=== PATIENT | female | born 2000 | race Caucasian/White ===

== ENCOUNTER → 2020-08-13 14:51 | Outpatient (CLI) | payer OTHER, SELFPAY ==
[2020-08-13 18:20] LABS: HCG,Quantitative 20489 mIU/ml (0-5.42)
== END ==
PROVIDERS: Visit Provider Nurse Practitioner Obstetrics & Gynecology
DX: N92.6 Irregular menstruation, unspecified (principal)
CPT/HCPCS: 36415; 84702

== ENCOUNTER → 2020-08-24 13:27 | Outpatient (CLI) | payer OTHER, SELFPAY ==
[2020-08-24 13:54] LABS: Barbiturates Screen,Urine Negative ng/ml (<200)
[2020-08-24 13:55] LABS: Benzodiazepines Screen,Urine Negative ng/ml (<200)
[2020-08-24 13:56] LABS: Amphetamine/Metha Screen,Urine Negative ng/ml (<1000); Cannabinoid Screen,Urine Positive ng/ml (<50)
[2020-08-24 13:57] LABS: Cocaine Screen,Urine Negative ng/ml (<300)
[2020-08-24 13:58] LABS: Methadone Screen,Urine Negative ng/ml (<300); Opiate Screen,Urine Negative ng/ml (<300)
[2020-08-24 13:59] LABS: Phencyclidine Screen,Urine Negative ng/ml (<25)
[2020-08-28 10:37] LABS: Neisseria gonorrhoeae, NAA Negative (Negative)
== END ==
PROVIDERS: Visit Provider Nurse Practitioner Obstetrics & Gynecology
DX: Z34.90 Encounter for supervision of normal pregnancy, unspecified, unspecified trimester (principal); R82.5 Elevated urine levels of drugs, medicaments and biological substances
CPT/HCPCS: 80305; 87491; 87591

== ENCOUNTER → 2020-08-29 09:06 | Outpatient (CLI) | payer OTHER, SELFPAY ==
--- NOTE | 2020-08-29 09:17 | US_ITS ---
PROCEDURE: US OB >= 14 WEEKS FETUS CLINICAL INDICATION: 20 weeks gestation Late to care Patient's first ultrasound No known LMP or NARINDER COMPARISON: No exams were available for comparison FINDINGS: There is a single live fetus which is in cephalic presentation. heart and body motion is noted. The cervix is closed. The placenta is posterior and grade 1. Complete survey performed and was unremarkable on the submitted images as in PACS. No discrete anomalies identified on survey imaging by technologist. Active fetus. Three-vessel cord with satisfactory umbilical cord insertion. 4- chamber heart noted. Survey of brain & ventricles Unremarkable. Face and neck survey unremarkable. Diaphragm and chest views unremarkable. Abdomen: Both kidneys noted and unremarkable. Stomach noted and satisfactory. Spine: Survey of the spine satisfactory with no anomalies identified nor imaged. Both arms and legs noted. Amniotic Fluid: Adequate. Maternal adnexa: No significant findings. Measurements: Average ultrasound age 19weeks 2days. Gestational Age Estimated due date by ultrasound age 1001/21/2021. Estimated weight 284g BPD = 19weeks 2days OFD = 19weeks 3days HC = 18weeks 4days AC = 19weeks 2days FL = 19weeks 4days Growth Percentile= % Heart Rate = 147bpm Cerebellum = 19weeks 2days Humerus = HC/AC is 1.13 CI is 0.79 FL/BPD is 0.7 FL/AC is 0.22 IMPRESSION: There is a single live intrauterine gestation in cephalic presentation with an average ultrasound age of 19 weeks 2 days. No obvious anomalies. Please see above for detail. Dictated by: Oscar Weathers MD 08/30/2020 08:39 Oscar Weathers MD in OV 08/30/2020 08:39
[2020-08-29 10:34] LABS: Basophils % 0.6 % (0.1-2.0); Eosinophils # 0.2 K/mm3 (0.0-0.4); Eosinophils % 2.3 % (0.1-12.0); Hematocrit 36.6 % (37.0-47.0); Hemoglobin 12.5 g/dL (12.2-16.2); Lymphocytes # 1.5 K/mm3 (0.7-4.5); Lymphocytes % 23.1 % (10-50); Mean Corpuscular Hemoglobin 30.3 pg (27.0-31.2); Mean Platelet Volume 8.4 fl (7.4-10.4); Monocytes # 0.4 K/mm3 (0.1-1.0); Monocytes % 5.9 % (1.7-9.3); Neutrophils # 4.5 K/mm3 (1.8-7.8); Neutrophils % 68.1 % (37.0-80.0); Platelet Count 225 K/mm3 (142-424); Red Blood Count 4.11 M/mm3 (4.20-5.40); White Blood Count 6.7 K/mm3 (4.5-13.0)
[2020-08-30 08:37] LABS: HIV Screen 4th Generation wRfx Non Reactive (Non Reactive)
[2020-08-30 13:34] LABS: HSV 2 IgG, Type Spec <0.91 index (0.00-0.90); Hepatitis B Surface Antigen Negative (Negative); Hepatitis C Antibody >11.0 s/co ratio (0.0-0.9); Rubella Antibodies, IgG 2.46 index (Immune >0.99)
[2020-09-08 11:51] LABS: Rapid Plasma Reagin Ab Titer NON REACTIVE
[2020-09-08 17:05] LABS: Amphetamines IA Negative
[2020-09-08 17:06] LABS: Barbituates IA Negative; Benzodiazepines IA Negative; Cocaine & Metabolites IA Negative; Phencyclidine IA Negative
[2020-09-08 17:07] LABS: Cannabinoid Confirmation Positive; Cannabinol Negative; Carboxy-THC 1.6; Hydroxy-THC Negative; THC (marijauna) metabolite IA POSITIVE; Tetrahydrocannabinol 3.2
[2020-09-08 17:08] LABS: Cannabidiol Negative; Methadone IA Negative; Opiates IA Negative; Propoxyphene IA Negative
[2020-09-30 12:05] LABS: Oxycodone IA Negative
== END ==
PROVIDERS: PCP Nurse Practitioner Family; Visit Provider Nurse Practitioner Obstetrics & Gynecology
DX: Z34.90 Encounter for supervision of normal pregnancy, unspecified, unspecified trimester (principal); Z3A.20 20 weeks gestation of pregnancy
CPT/HCPCS: 36415; 76805; 80307; 85025; 86592; 86695; 86703; 86762; 86790; 86850; 87340; 87380; G0432

== ENCOUNTER → 2020-08-29 09:58 | Outpatient (CLI) | payer MEDICAID, SELFPAY | PROVIDERS: Visit Provider Nurse Practitioner Obstetrics & Gynecology | DX: Z34.90 Encounter for supervision of normal pregnancy, unspecified, unspecified trimester (principal) | CPT/HCPCS: 36415; 80307; 85025; 86592; 86695; 86703; 86762; 86790; 86850; 87340; 87380; G0432 ==

== ENCOUNTER → 2020-09-21 11:43 | Outpatient (CLI) | payer OTHER, SELFPAY ==
[2020-09-21 12:52] LABS: Alanine Aminotransferase 205 U/L (12-78); Albumin Level 3.3 g/dl (3.5-5.0); Alkaline Phosphatase 64 U/L (38-126); Aspartate Amino Transferase 134 U/L (14-36); Bilirubin,Direct 0.4 mg/dl (0.0-0.4); Bilirubin,Total 0.4 mg/dl (0.2-1.3); Total Protein,Serum 5.9 g/dl (6.3-8.2)
[2020-09-24 13:09] LABS: HCV Genotype Charge YES; Hepatitis C Genotype 1a (.)
== END ==
PROVIDERS: Visit Provider Nurse Practitioner Obstetrics & Gynecology
DX: B19.20 Unspecified viral hepatitis C without hepatic coma (principal)
CPT/HCPCS: 36415; 80076; 87522; 87902

== ENCOUNTER → 2020-10-19 12:01 | Outpatient (CLI) | payer OTHER, SELFPAY ==
[2020-10-19 12:48] LABS: Glucose,Fasting 92 mg/dl (74-100)
[2020-10-19 13:16] LABS: Amphetamine/Metha Screen,Urine Negative ng/ml (<1000)
[2020-10-19 14:42] LABS: Glucose 1 Hour 96 mg/dL (74-100)
== END ==
PROVIDERS: Visit Provider Nurse Practitioner Obstetrics & Gynecology
DX: Z34.92 Encounter for supervision of normal pregnancy, unspecified, second trimester (principal); Z3A.28 28 weeks gestation of pregnancy
CPT/HCPCS: 36415; 80307; 82951

== ENCOUNTER → 2021-01-11 15:02 | Outpatient (CLI) | payer OTHER, SELFPAY | PROVIDERS: Visit Provider Nurse Practitioner Obstetrics & Gynecology | DX: Z34.90 Encounter for supervision of normal pregnancy, unspecified, unspecified trimester (principal) | CPT/HCPCS: 86403 ==

== ENCOUNTER 2021-01-13 22:11 | Inpatient (IN) | payer OTHER, SELFPAY ==
[2021-01-13 18:54] VITALS: BMI 37.5
[2021-01-13 19:14] LABS: Coronavirus 19, PCR Not Detected (NotDetected); Influenza A, PCR Not Detected (NotDetected); Influenza B, PCR Not Detected (NotDetected)
[2021-01-13 19:39] LABS: Fetal Membrane Rupture (Rapid) Negative (Negative)
[2021-01-13 20:19] LABS: Microscopic, Urine URINE MICROSCOPIC (MICROSCOPIC)
[2021-01-13 20:23] LABS: Appearance,Urine CLOUDY (Clear); Bilirubin,Urine Negative (Negative); Blood, Urine TRACE-I (Negative); Color,Urine YELLOW (Yellow); Glucose,Urine (UA) Negative (Negative); Ketones,Urine Negative (Negative); Leukocyte Esterase,Urine 2+ (Negative); Nitrate,Urine Negative (Negative); Protein,Urine Negative (Negative); Specific Gravity, Urine 1.025 (1.005-1.030); Urobilinogen,Urine 0.2 EU/dl (0.2)
[2021-01-13 20:36] LABS: Amphetamine/Metha Screen,Urine Negative ng/ml (<1000); Barbiturates Screen,Urine Negative ng/ml (<200)
[2021-01-13 20:37] LABS: Benzodiazepines Screen,Urine Negative ng/ml (<200)
[2021-01-13 20:38] LABS: Cannabinoid Screen,Urine Positive ng/ml (<50)
[2021-01-13 20:39] LABS: Cocaine Screen,Urine Negative ng/ml (<300); Methadone Screen,Urine Negative ng/ml (<300)
[2021-01-13 20:40] LABS: Opiate Screen,Urine Negative ng/ml (<300); Phencyclidine Screen,Urine Negative ng/ml (<25)
[2021-01-13 20:45] LABS: Trichomonas,Urine 1+ /lpf; WBC,Urine TNTC #/hpf (0-3)
[2021-01-13 20:46] LABS: Bacteria,Urine 2+ /lpf
[2021-01-13 21:11] LABS: Basophils # 0.1 K/mm3 (0-0.2); Basophils % 0.3 % (0.1-2.0); Eosinophils # 0.1 K/mm3 (0.0-0.4); Eosinophils % 0.2 % (0.1-12.0); Hematocrit 43.1 % (37.0-47.0); Hemoglobin 14.4 g/dL (12.2-16.2); Lymphocytes # 2.3 K/mm3 (0.7-4.5); Lymphocytes % 10.2 % (10-50); Mean Corpuscular HGB Conc 33.4 g/dL (31.8-35.4); Mean Corpuscular Hemoglobin 31.1 pg (27.0-31.2); Mean Platelet Volume 10.3 fl (7.4-10.4); Monocytes # 0.7 K/mm3 (0.1-1.0); Monocytes % 3.1 % (1.7-9.3); Neutrophils # 19.4 K/mm3 (1.8-7.8); Neutrophils % 86.2 % (37.0-80.0); Platelet Count 276 K/mm3 (142-424); Red Blood Count 4.64 M/mm3 (4.20-5.40); Red Cell Distribution Width 13.3 % (11.5-17.5)
[2021-01-13 21:12] LABS: White Blood Count 22.5 K/mm3 (4.8-10.8)
[2021-01-13 21:13] LABS: MANUAL DIFFERENTIAL MANUAL DIFFERENTIAL (MANUAL DIFF)
[2021-01-13 21:17] LABS: Chloride 109 mmol/L (98-107)
[2021-01-13 21:18] LABS: Potassium 4.4 mmoL/L (3.5-5.1); Sodium 136 mmol/L (136-145)
[2021-01-13 21:20] LABS: Blood Urea Nitrogen 3 mg/dl (7-17); Creatinine Clearance Estimated 382 mL/min (50-200); Estimated Glomerular Filt Rate 201 ml/min (>60); GFR (African American) 244 ML/MIN (>60)
[2021-01-13 21:21] LABS: Anion Gap 10.4 mEq/L (5-15); Calcium 8.8 mg/dl (8.4-10.2); Carbon Dioxide 21 mmol/L (22.0-30.0); Glucose 93 mg/dl (74-100)
[2021-01-13 21:28] LABS: Lymphocytes % 16 % (10-50); Neutrophils % 80 % (42-76); Platelet Estimate Normal; RBC Morphology Normal; Total Cells Counted 100
[2021-01-13 22:00] VITALS: BP 134/94; PULSE 94; RESP 18; TEMP 36.9; O2SAT 97; BMI 37.5
--- NOTE | 2021-01-14 00:01 | HMH.ANESCL ---
[facility] Anesthesia Checklist - Patient Identification Patient Identification: Arm Band - Structural Data Admitted From: Inpatient Planned Operative Procedure/s: Labor Epidural Consent for Planned Operative Procedure(s) Verified: Yes Verified Documents: Surgical Consent, History and Physical - NPO Status Verified Time NPO: 00:00 - Additional verifications Anesthesia Reactions: No - Airway Assessment C-Spine Mobility Assessed: Yes TMJ Mobility Assessed: Yes Dentition: Good Dentition - Neurological Assessment Level of Consciousness: Awake, Alert - Anesthesia Plan Anesthesia Risk discussed: Yes Anesthesia Plan: Verified ASA Class: II Anesthesia Type: Epidural [facility] History I have reviewed the patient's past medical history: Yes Medical History: Reports:: Anxiety, Asthma, Hypertension *Have you ever received a pneumonia vaccine?: No *Have you received a flu vaccine this season?: No Anesthesia experience/problems:: nac Laterality Cases: Bilateral: Tonsillectomy, Other Other Surgeries: Yes: Other Amputation: No Fractures: No - *Social History Smoking Status: Current every day smoker Tobacco Type: cigarettes Alcohol Intake: never Substance Use Type: amphetamines, marijuana, methamphetamine *Occupational Status:: unemployed *Travel in the last 8 weeks: None - Psychiatric History Pschychiatric History:: Reports:: Anxiety Family Hx:: Cancer, Thyroid Disorder, Diabetes, Heart Attack, Hypertension
--- NOTE | 2021-01-14 00:14 | HMH.HP ---
*Admission Date: 01/20/21 *Chief complaint: Active labor *History of present illness: This 20-year-old 1 para 0 AB 0 white female was admitted at 40-2/7 weeks in active labor at 2200 on 01/13/2021. She was a patient of Dr. Wong, but has been seen only 6 times her visits. She had a known history of drug abuse (marijuana and methamphetamine); her screen on admission was positive only for marijuana. She was also known to be hepatitis C positive and her group B strep status was unknown. Therefore she was given intravenous clindamycin (allergic to penicillin). She was also given a one-time dose of IV Flagyl because of trichomonas on her urinalysis. She had been scheduled for Cervidil and induction on 01/14/2021 because of postdates. She began melany at home at 1730 on 01/13/2021 and arrived in labor and delivery at 2200 in active labor. AmniSure was negative. Cervix is completely effaced, 2 to 3 cm, with the presenting vertex at -2 station and bag of water intact. Her hemoglobin was 14.4 g a white count 22.5 she was admitted and an epidural was ordered. Amniotomy revealed clear fluid and an internal monitor was placed. Vaginal delivery is anticipated. [facility] History Medical History: Reports:: Anxiety, Asthma, Hypertension *Have you ever received a pneumonia vaccine?: No *Have you received a flu vaccine this season?: No Anesthesia experience/problems:: nac Laterality Cases: Bilateral: Tonsillectomy, Other Other Surgeries: Yes: Other Amputation: No Fractures: No - *Social History Smoking Status: Current every day smoker Tobacco Type: cigarettes Alcohol Intake: never Substance Use Type: amphetamines, marijuana, methamphetamine *Occupational Status:: unemployed *Travel in the last 8 weeks: None - Psychiatric History Pschychiatric History:: Reports:: Anxiety Family Hx:: Cancer, Thyroid Disorder, Diabetes, Heart Attack, Hypertension Meds Home Medications Medication Instructions Recorded Confirmed Type Vit No.126/Iron/Folic 1 tab PO DAILY 01/13/21 01/13/21 History [Classic ] RX: Famotidine [Acid Railroad Maintenance Clerk] 20 mg PO DAILY 01/13/21 01/13/21 History RX: Ferrous Sulfate 325 mg PO DAILY 01/13/21 01/13/21 History Allergies Allergy/AdvReac Type Severity Reaction Status Date / Time latex Allergy Intermediate I-RASH Verified 01/11/21 11:13 Penicillins Allergy Intermediate I-RASH Verified 01/11/21 11:13 Sulfa (Sulfonamide Allergy Intermediate I-RASH Verified 01/11/21 11:13 Antibiotics) red dye Allergy Verified 01/11/21 11:13 Exam Vital signs and Labs for Last 24 Hours: Laboratory Results - last 24 hr 01/13/21 19:06: SARS-CoV-2 (PCR) Not detected, Influenza A Untype (PCR) Not detected, Influenza Type B (PCR) Not detected 01/13/21 19:10: Membrane Rupture Negative 01/13/21 20:09: Urine Color Yellow, Urine Appearance Cloudy, Urine pH 6.0, Ur Specific [place] 1.025, Urine Protein Negative, Urine Glucose (UA) Negative, Urine Ketones Negative, Urine Blood Trace-i, Urine Nitrate Negative, Urine Bilirubin Negative, Urine Urobilinogen 0.2, Ur Leukocyte Esterase 2+ A, Urine RBC 3-5, Urine WBC Tntc, Ur Squamous Epith Cells 5-10, Urine Bacteria 2+, Urine Trichomonas 1+ 01/13/21 20:09: Urine Opiates Screen Negative, Urine Methadone Screen Negative, Ur Barbituates Screen Negative, Ur Phencyclidine Scrn Negative, Ur Amphetamines Screen Negative, U Benzodiazepines Scrn Negative, Urine Cocaine Screen Negative, U Marijuana (THC) Screen Positive H 01/13/21 20:45: WBC 22.5 H*, RBC 4.64, Hgb 14.4, Hct 43.1, MCV 93.0, MCH 31.1, MCHC 33.4, RDW 13.3, Plt Count 276, MPV 10.3, Neut % (Auto) 86.2 H, Lymph % (Auto) 10.2, [place] % (Auto) 3.1, Eos % (Auto) 0.2, Baso % (Auto) 0.3, Neut # (Auto) 19.4 H, Lymph # (Auto) 2.3, [place] # (Auto) 0.7, Eos # (Auto) 0.1, Baso # (Auto) 0.1, Total Counted 100, Neutrophils % (Manual) 80 H, Band Neutrophils % 4.0, Lymphocytes % (Manual) 16, Platelet Estimate Normal, RBC Morphology Normal
--- NOTE | 2021-01-14 00:24 | P.PN_ITS ---
Internal Medicine - PN: Subj *Date: 01/16/21 *Time: 09:12 (Cervix now 3 to 4 cm dilated.) Exam Vital signs and Labs for Last 24 Hours: Laboratory Results - last 24 hr 01/13/21 19:06: SARS-CoV-2 (PCR) Not detected, Influenza A Untype (PCR) Not detected, Influenza Type B (PCR) Not detected 01/13/21 19:10: Membrane Rupture Negative 01/13/21 20:09: Urine Color Yellow, Urine Appearance Cloudy, Urine pH 6.0, Ur Specific [place] 1.025, Urine Protein Negative, Urine Glucose (UA) Negative, Urine Ketones Negative, Urine Blood Trace-i, Urine Nitrate Negative, Urine Bilirubin Negative, Urine Urobilinogen 0.2, Ur Leukocyte Esterase 2+ A, Urine RBC 3-5, Urine WBC Tntc, Ur Squamous Epith Cells 5-10, Urine Bacteria 2+, Urine Trichomonas 1+ 01/13/21 20:09: Urine Opiates Screen Negative, Urine Methadone Screen Negative, Ur Barbituates Screen Negative, Ur Phencyclidine Scrn Negative, Ur Amphetamines Screen Negative, U Benzodiazepines Scrn Negative, Urine Cocaine Screen Negative, U Marijuana (THC) Screen Positive H 01/13/21 20:45: WBC 22.5 H*, RBC 4.64, Hgb 14.4, Hct 43.1, MCV 93.0, MCH 31.1, MCHC 33.4, RDW 13.3, Plt Count 276, MPV 10.3, Neut % (Auto) 86.2 H, Lymph % (Auto) 10.2, [place] % (Auto) 3.1, Eos % (Auto) 0.2, Baso % (Auto) 0.3, Neut # (Auto) 19.4 H, Lymph # (Auto) 2.3, [place] # (Auto) 0.7, Eos # (Auto) 0.1, Baso # (Auto) 0.1, Total Counted 100, Neutrophils % (Manual) 80 H, Band Neutrophils % 4.0, Lymphocytes % (Manual) 16, Platelet Estimate Normal, RBC Morphology Normal 01/13/21 20:45: Sodium 136, Potassium 4.4, Chloride 109 H, Carbon Dioxide 21 L, Anion Gap 10.4, BUN 3 L, Creatinine 0.40 L, Estimated Creat Clear 382 H, Estimated GFR 201, Est GFR ( Amer) 244, Glucose 93, Calcium 8.8 01/13/21 20:45: Blood Type A Positive, Antibody Screen Negative I & O for Last 24 hours: Intake & Output 01/11/21 01/12/21 01/13/21 01/14/21 11:59 11:59 11:59 11:59 Weight 240 lb
--- NOTE | 2021-01-14 00:40 | HMH.ACPN2 ---
Internal Medicine - PN: Subj *Date: 01/16/21 *Time: 09:26 (This note was originally dictated on 01/14/2021 at 0024 cervix was 4 to 5 cm and completely effaced.) Exam Vital signs and Labs for Last 24 Hours: Laboratory Results - last 24 hr 01/13/21 19:06: SARS-CoV-2 (PCR) Not detected, Influenza A Untype (PCR) Not detected, Influenza Type B (PCR) Not detected 01/13/21 19:10: Membrane Rupture Negative 01/13/21 20:09: Urine Color Yellow, Urine Appearance Cloudy, Urine pH 6.0, Ur Specific [place] 1.025, Urine Protein Negative, Urine Glucose (UA) Negative, Urine Ketones Negative, Urine Blood Trace-i, Urine Nitrate Negative, Urine Bilirubin Negative, Urine Urobilinogen 0.2, Ur Leukocyte Esterase 2+ A, Urine RBC 3-5, Urine WBC Tntc, Ur Squamous Epith Cells 5-10, Urine Bacteria 2+, Urine Trichomonas 1+ 01/13/21 20:09: Urine Opiates Screen Negative, Urine Methadone Screen Negative, Ur Barbituates Screen Negative, Ur Phencyclidine Scrn Negative, Ur Amphetamines Screen Negative, U Benzodiazepines Scrn Negative, Urine Cocaine Screen Negative, U Marijuana (THC) Screen Positive H 01/13/21 20:45: WBC 22.5 H*, RBC 4.64, Hgb 14.4, Hct 43.1, MCV 93.0, MCH 31.1, MCHC 33.4, RDW 13.3, Plt Count 276, MPV 10.3, Neut % (Auto) 86.2 H, Lymph % (Auto) 10.2, [place] % (Auto) 3.1, Eos % (Auto) 0.2, Baso % (Auto) 0.3, Neut # (Auto) 19.4 H, Lymph # (Auto) 2.3, [place] # (Auto) 0.7, Eos # (Auto) 0.1, Baso # (Auto) 0.1, Total Counted 100, Neutrophils % (Manual) 80 H, Band Neutrophils % 4.0, Lymphocytes % (Manual) 16, Platelet Estimate Normal, RBC Morphology Normal 01/13/21 20:45: Sodium 136, Potassium 4.4, Chloride 109 H, Carbon Dioxide 21 L, Anion Gap 10.4, BUN 3 L, Creatinine 0.40 L, Estimated Creat Clear 382 H, Estimated GFR 201, Est GFR ( Amer) 244, Glucose 93, Calcium 8.8 01/13/21 20:45: Blood Type A Positive, Antibody Screen Negative I & O for Last 24 hours: Intake & Output 01/11/21 01/12/21 01/13/21 01/14/21 11:59 11:59 11:59 11:59 Weight 240 lb
--- NOTE | 2021-01-14 11:47 | SW/DCPLANNER ---
Addendum entered by [facility] 01/18/21 11:51: Infant cord screen has been faxed to [facility] DCBS: Ivelisse Hayes. Addendum entered by [facility] 01/17/21 11:13: Ivelisse jensen/ [facility] has provided a prevention plan for this patient: patient has agreed and signed prevention plan. Plan for this patient is to discharge home with infant today. Prevention plan has been provided to patient/ OB nurse (Roma) and faxed back to Ivelisse at [phone]. Addendum entered by [facility] 01/15/21 11:42: Sera Jasmine with [facility] is present to speak with this patient. Addendum entered by [facility] 01/14/21 14:09: Ivelisse jensen/ [facility] has called to ask further questions regarding this patient/infant. Ivelisse has asked that once urine is collected and if withdraw scoring begins to please contact her back at [phone] [email or web address] Original Note: I received a referral for this patient regarding: marijuana use and amphetamine use during along with late care. Patients first visit was at four months in August: patient stated that she did not know she was . Patient did have several positive urine drug screens: 08/24/20 Meth and THC, 08/29/20 THC, 09/21/20 Meth and Amphetamines, 11/08/20 THC (urine did NOT show up / highly suspicious that patient used someone else urine), 12/06/20 THC, 01/11/21 THC and on admission 01/13/21 THC. Patient stated that she was using Meth but stopped in August when she found out she was . Patient also admits to THC use stating that she uses this for anxiety. Infants urine has not yet been collected and is too early to be showing signs of withdraw per nursing staff (Sharon Vasquez). female (Yoana LanzaEstrella) was born today 01/[birth year]. Patient stated that infants father (Scottie Lanza) during due to an overdose. Patient stated that she resides at [address] [place] [address] in [place] [address] with and her sister (Ritika Mckeon). Patients contact number is [phone]. Patient stated that this is her first child and is already established with [facility] but is unsure about HANDS program. Patient stated that she has: crib, clothing, carseat, diapers and will be bottle feeding. Per nursing patient has asked to leave several times to go smoke and she is reminded that this is a tobacco free campus. I have reported this situation to Central Intake w/ ID# [id number]. I will follow up with ID# once infants urine is collected or if begins to show signs of withdraw. Patient/infant are expected to discharge on 01/16/21 pending no setbacks.
[2021-01-14 16:46] LABS: Hematocrit 31.1 % (37.0-47.0)
[2021-01-14 17:07] LABS: Hemoglobin 10.5 g/dL (12.2-16.2)
--- NOTE | 2021-01-15 12:14 | HMH.ACPN2 ---
Internal Medicine - PN: Subj *Date: 01/15/21 *Time: 12:14 Interval history: PPD #1 Delivery complicated by placental abruption and excessive vaginal bleeding Asymptomatic with acute blood loss anemia Hgb at admission 14.4 with PPD #1 Hgb 10.5 Lochia has been appropriate Tolerating regular diet and voiding without difficulty sales agent business services consult in progress for +UDS methamphetamine in office during UDS + THC at admission in labor Exam Vital signs and Labs for Last 24 Hours: Temp Pulse Resp BP Pulse Ox 98.5 F 94 H 18 134/94 H 97 01/13/21 22:00 01/13/21 22:00 01/13/21 22:00 01/13/21 22:00 01/13/21 22:00 Laboratory Results - last 24 hr 01/14/21 15:45: Hgb 10.5 L D, Hct 31.1 L I & O for Last 24 hours: Intake & Output 01/13/21 01/14/21 01/15/21 01/16/21 11:59 11:59 11:59 11:59 Weight 240 lb Microbiology Reports for the Last 24 Hours: Microbiology 01/13/21 20:09 Urine,Clean Catch Urine Culture - Final Multiple organisms, suggests contamination. Narrative: CONSTITUTIONAL: no acute distress HEENT: mucous membranes moist PULMONARY: breathing unlabored without audible wheezes CV: no tachycardia or visible JVD; normal LE peripheral pulses ABD: soft, NT/ND, no guarding : fundus firm at/below umbilicus SKIN: no visible rash or lesions EXT: 1+ edema LEs NEURO: alert/oriented, no altered mental status PSYCH: appropriate mood and demeanor Assessment and Plan (1) Active labor at term Status: Acute Category: Medical (2) Vaginal delivery Status: Acute Category: Medical Code(s): O80 - Encounter for full-term uncomplicated delivery (3) Placental abruption Status: Acute Category: Medical Code(s): O45.90 - Premature separation of placenta, unspecified, unspecified trimester (4) Acute blood loss anemia Status: Acute Category: Medical Code(s): D62 - Acute posthemorrhagic anemia (5) Positive urine drug screen Status: Acute Category: Medical Code(s): R82.5 - Elevated urine levels of drugs, medicaments and biological substances - Assessment and plan all Dx Assessment and Plan for all problems:: Routine care FeSO4 supplementation for anemia sales agent business services consult in progress Anticipate discharge tomorrow
[2021-01-15 19:31] VITALS: BP 150/87; PULSE 86; RESP 18; TEMP 36.9; O2SAT 100
[2021-01-16 04:37] VITALS: BP 129/70; PULSE 87; RESP 16; TEMP 36.7; O2SAT 98
--- NOTE | 2021-01-16 08:41 | P.PCN_ITS ---
- Delivery Note Delivery Date:: 01/14/21 Delivery Time:: 03:33 Anesthesia Type: Epidural Was labor medically induced?: No Gestational age (weeks): 40 delivered prior to 39 weeks?: No Justification for early elective delivery:: Active Labor Gender: Female at 1 minute: 7 at 5 minutes: 8 Suction Catheter Type: Tobias AF:: clear LAC or MLE?: MLE (usual repair, in ;layers) Delivery Procedure:: This 20-year-old 1, now para 1, Ab0 white female was admitted at 40-2/7 weeks (a patient of Dr. Wong), having been seen only 6 times for visits. She had a known history of drug use including methamphetamine and marijuana. Her tox screen on admission was positive only for marijuana. She also is known to have hepatitis C and her group be strep status was unknown. She had been scheduled for Cervidil and induction on 01/14/2021 for postdates. She began contractions at home starting at 1730, and arrived in the labor room at approximately 2230 in active labor. Her AmniSure was negative, and at the time of admission her cervix was completely effaced, 2 to 3 cm dilated, with the presenting vertex at -2 station. Her hemoglobin was 14.4 g. Her urinalysis showed many white cells and trichomonas. Her white count was 22.5. She was started on intravenous clindamycin for her GBS (allergic to penicillin) and given 1 dose of IV Flagyl 500 mg for trichomonas. An epidural was administered and an amniotomy revealed clear fluid. She ultimately progressed to delivery. Delivery process included outlet forceps because of difficulty pushing. She had experienced a small amount of bright red bleeding prior to actual delivery. The baby was delivered over a midline episiotomy and had a loose nuchal cord x1, which was easily reduced. The baby's nasal and oropharynx were bulb suction, and the baby cried spontaneously on the perineum, as was delivered. The cord was clamped and cut, 3 vessels were noted to be within the cord, and cord blood was obtained. The baby was handed into the arms of the attending gas appliance adjuster, Dr. Yu, who assigned Apgars of 7 at 1 minute and 8 at 5 minutes to this 5 pound 4 ounce, 18 inch female infant, born at 0333 on 01/14/2021. It should be noted that the umbilical cord was extremely thin and flimsy. The placenta delivered spontaneously, intact, at 0335. The uterus was inspected and was felt to be clean, and was involuting well, with IV Pitocin running. The episiotomy was closed in the usual fashion, in layers, with 2-0 Vicryl. There were no lacerations or extensions of the episiotomy, and the rectovaginal septum was int act at the close of the procedure. The patient tolerated the procedure well, and was recovered in good condition. Her blood type is Rh+. Her rubella titer is immune. She is attempting to breast-feed. Placental Delivery Description: Spontaneous (10% abruption)
--- NOTE | 2021-01-16 08:52 | HMH.ACPN2 ---
Internal Medicine - PN: Subj *Date: 01/16/21 *Time: 08:52 (This is day #2. The patient is afebrile. Her vital signs are stable. Hemoglobin is 10.4 g, but she is clinically stable. Uterine fundus has involuted well. Lochia is normal. Abdomen soft. Episiotomy healing well. She is attempting to nurse. The baby is on a hold for child welfare social worker issues. Patient complains of depression, which has been an issue in the past. She will be discharged today.) Exam Vital signs and Labs for Last 24 Hours: Temp Pulse Resp BP Pulse Ox 98.1 F 87 16 129/70 98 01/16/21 04:37 01/16/21 04:37 01/16/21 04:37 01/16/21 04:37 01/16/21 04:37 I & O for Last 24 hours: Intake & Output 01/13/21 01/14/21 01/15/21 01/16/21 11:59 11:59 11:59 11:59 Weight 240 lb Microbiology Reports for the Last 24 Hours: Microbiology 01/13/21 20:09 Urine,Clean Catch Urine Culture - Final Multiple organisms, suggests contamination. Assessment and Plan (1) Active labor at term Status: Acute Category: Medical (2) Vaginal delivery Status: Acute Category: Medical Code(s): O80 - Encounter for full-term uncomplicated delivery (3) Placental abruption Status: Acute Category: Medical Code(s): O45.90 - Premature separation of placenta, unspecified, unspecified trimester (4) Acute blood loss anemia Status: Acute Category: Medical Code(s): D62 - Acute posthemorrhagic anemia (5) Positive urine drug screen Status: Acute Category: Medical Code(s): R82.5 - Elevated urine levels of drugs, medicaments and biological substances
--- NOTE | 2021-01-16 09:00 | HMH.DCSUM ---
General - General Admission date:: 01/13/21 Discharge date: 01/16/21 (This 20-year-old 1, now para 1, Ab0 white female was admitted in active labor at 40-2/7 weeks on 01/13/2021. He was known to be hepatitis C positive and also had a history of drug abuse (marijuana and methamphetamine). Her tox screen on admission was positive only for marijuana. Her group B strep status was also unknown and so she was treated with intravenous clindamycin because she was allergic to penicillin. Her urinalysis showed many white cells and trichomonas, and so she was also given a single dose of IV Flagyl 500 mg. At the time of admission her cervix was completely effaced into the 3 cm dilated. She had an epidural, which worked well. And then progressed steadily in labor, delivering on 01/14/2021 at 0333 by outlet forceps over a midline episiotomy. The baby was an 7/8, 5 pound 4 ounce, 18 inch female infant. A 10% abruption was noted in the placenta, which delivered spontaneously. , the patient has done well. She is eating and ambulating and has had a bowel movement her episiotomy is healing well. Her abdomen is soft. Her lochia is normal. The baby is on a protective services social worker hold, but the patient is discharged on the second day on iron and vitamins and Tylenol and Motrin, as needed for pain. She has a history of depression and has been on Celexa in the past. She is given a prescription for Celexa 10 mg a day (#20). She is given appropriate instructions as to diet, exercise, and perineal care, and she is to return to Dr. Gracia's office and 3 weeks for follow-up. Her blood type is Rh+. Her rubella titer is immune. She is attempting to nurse.) Objective Vital signs: Temp Pulse Resp BP Pulse Ox 98.1 F 87 16 129/70 98 01/16/21 04:37 01/16/21 04:37 01/16/21 04:37 01/16/21 04:37 01/16/21 04:37 DS: Diagnosis - Discharge Diagnosis (1) Active labor at term Status: Acute (2) Vaginal delivery Status: Acute (3) Placental abruption Status: Acute (4) Acute blood loss anemia Status: Acute (5) Positive urine drug screen Status: Acute Discharge Plan - Patient Discharge Instructions ACTIVITY: Continue current activity Additional Instructions: NOTHING IN VAGINA FOR 6 WEEKS NO HEAVY LIFTING OR STRENUOUS ACTIVITY FOLLOW-UP WITH DR. PEREYRA ON Patient Instructions: Depression, Hemorrhage, DI for Labor and Delivery, Vaginal , DI for Pre-eclampsia, [facility] Post Discharge Instructions, Preventing the Spread of Coronavirus Discharge Instructions - Follow up Plan Follow up with: Tristen Pereyra MD [Staff Physician] - 01/14/21 10:30 am Disposition: Home, Self-Care Condition at discharge:: Stable Home Medications: Home Medications Medication Instructions Recorded Confirmed Type Famotidine [Acid Snuff Grinder And Screener] 20 mg PO DAILY 01/13/21 01/13/21 History Ferrous Sulfate 325 mg PO DAILY 01/13/21 01/13/21 History Vit No.126/Iron/Folic 1 tab PO DAILY 01/13/21 01/13/21 History [Classic ] Prescriptions/Medication Reconciliation: Continued Vit No.126/Iron/Folic [Classic ] 1 tab PO DAILY Ferrous Sulfate 325 mg PO DAILY Famotidine [Acid Snuff Grinder And Screener] 20 mg PO DAILY - Problem Reconciliation Problems Reviewed?: Yes
== END 2021-01-16 10:00 | disposition home or self-care (01) | DRG 806 ==
LOC: OBOUT 22:11 → OB 22:11
PROVIDERS: Admitting Provider Obstetrics & Gynecology; Visit Provider Nurse Practitioner Obstetrics & Gynecology
DX: O45.93 Premature separation of placenta, unspecified, third trimester (principal); O99.323 Drug use complicating pregnancy, third trimester; Z37.0 Single live birth; Z3A.40 40 weeks gestation of pregnancy; O62.4 Hypertonic, incoordinate, and prolonged uterine contractions; O66.5 Attempted application of vacuum extractor and forceps; O69.81X0 Labor and delivery complicated by cord around neck, without compression, not applicable or unspecified; F15.10 Other stimulant abuse, uncomplicated
CPT/HCPCS: 59409; 36415; 59025; 80048; 80305; 81001; 84112; 85007; 85014; 85018; 85025; 86403; 86850; 87086; 94761; 96360; 96361; 96372; C1758; C9803; G0283; U0003; U0005